=== PATIENT | male | born 1975 ===

== ENCOUNTER 2018-05-28 10:02 | Emergency (ER) | payer SELFPAY ==
[~2018-05-28] VITALS: Ht 165.1 cm; Wt 81.7 kg
[2018-05-28 10:05] VITALS: BP 112/73; PULSE 81; RESP 18; Ht 165.1 cm; Wt 81.7 kg
== END 2018-05-28 11:20 | disposition left against medical advice (07) ==
LOC: FTE 10:02
DX: Z53.21 Procedure and treatment not carried out due to patient leaving prior to being seen by health care provider (principal)